=== PATIENT | male | born 1985 | race Caucasian/White ===

== ENCOUNTER 2021-05-18 10:02 | Emergency (ER) | payer OTHER ==
--- NOTE | 2021-05-18 11:27 | ED Physician Documentation ---
PD HPI CHEST PAIN - Stated complaint Stated Complaint: SOA/UPPER LT STOMACH PX - Chief complaint Chief Complaint: Abd Pain - History obtained from History obtained from: Patient - History of Present Illness Timing - onset: How many weeks ago (2) Timing - onset during: Light activity Timing - duration: Weeks (2) Timing - details: Gradual onset, Still present Quality: Pressure, Tightness Location: Substernal, Left chest Radiation: Abdominal Improved by: Rest Worsened by: Movement, Palpation, Position Associated symptoms: Shortness of air, Nausea. No: Diaphoresis, Vomiting Similar symptoms before: Has not had sx before Recently seen: Not recently seen - Additional information Additional information: 36 y/o male with 2 weeks of LUQ pain that is worse when he is working out and sitting in certain positions. He has not had viceral symptoms. Review of Systems Constitutional: denies: Fever Eyes: denies: Decreased vision Ears: denies: Ear pain Nose: denies: Congestion Throat: denies: Sore throat Cardiac: reports: Chest pain / pressure. denies: Palpitations Respiratory: reports: Dyspnea. denies: Cough, Wheezing GI: denies: Nausea, Vomiting : denies: Dysuria, Frequency PD PAST MEDICAL HISTORY - Past Medical History Past Medical History: Yes Cardiovascular: None Respiratory: None Neuro: None Endocrine/Autoimmune: None GI: None : None HEENT: None Psych: None Musculoskeletal: None Derm: None - Past Surgical History Past Surgical History: Yes General: Appendectomy - Allergies Allergies/Adverse Reactions: Allergies Allergy/AdvReac Type Severity Reaction Status Date / Time No Known Drug Allergies Allergy Verified 05/18/21 10:13 - Social History Does the pt smoke?: No Smoking Status: Never smoker Does the pt drink ETOH?: No Does the pt have substance abuse?: No - Immunizations Immunizations are current?: Yes - POLST Patient has POLST: No PD ED PE NORMAL - Vitals Vital signs reviewed: Yes (hypertensive ) - General General: Alert and oriented X 3, No acute distress, Well developed/nourished - HEENT HEENT: Atraumatic, PERRL, EOMI - Neck Neck: Supple, no meningeal sign, No bony TTP - Cardiac Cardiac: RRR, No murmur - Respiratory Respiratory: No respiratory distress, Clear bilaterally - Abdomen Abdomen: Normal bowel sounds, Soft, Non tender, Non distended, No organomegaly - Back Back: No CVA TTP, No spinal TTP - Derm Derm: Normal color, Warm and dry, No rash - Extremities Extremities: No deformity, No edema - Neuro Neuro: Alert and oriented X 3, professional nursing assistant 2-12 intact, No motor deficit, No sensory deficit, Normal speech Eye Opening: Spontaneous Motor: Obeys Commands Verbal: Oriented GCS Score: 15 - Psych Psych: Normal mood, Normal affect Results - Vitals Vitals: Vital Signs - 24 hr 05/18/21 05/18/21 10:08 12:24 Temperature 36.3 C L 37.3 C Heart Rate 60 60 Respiratory 16 16 Rate Blood Pressure 143/53 H 114/56 L O2 Saturation 98 95 Oxygen O2 Source Room air - EKG (time done) 1141 Rate: Rate (enter#) (52) Rhythm: NSR [place]: LAD Compare to prior EKG: Old EKG unavailable Computer interpretation: Agree with computer - Labs Labs: Laboratory Tests 05/18/21 05/18/21 05/18/21 11:33 11:33 11:33 WBC 6.7 RBC 5.24 Hgb 15.9 Hct 44.0 MCV 84.0 MCH 30.3 MCHC 36.1 H RDW 12.2 Plt Count 302 MPV 9.3 Neut # (Auto) 3.8 Lymph # (Auto) 2.2 [place] # (Auto) 0.5 Eos # (Auto) 0.2 Baso # (Auto) 0.0 Absolute Nucleated RBC 0.00 Nucleated RBC % 0.0 D-Dimer < 200.0 L Sodium 139 Potassium 4.1 Chloride 104 Carbon Dioxide 26 Anion Gap 9.0 BUN 26 H Creatinine 1.0 Estimated GFR (MDRD) 84 L Glucose 99 Calcium 9.2 Total Bilirubin 0.8 AST 27 ALT 32 Alkaline Phosphatase 45 Troponin I High Sens Total Protein 7.7 Albumin 5.0 Globulin 2.7 Albumin/Globulin Ratio 1.9 Lipase 27 05/18/21 11:33 WBC RBC Hgb Hct MCV MCH MCHC RDW Plt Count MPV Neut # (Auto) Lymph # (Auto) [place] # (Auto) Eos # (Auto) Baso # (Auto) Absolute Nucleated RBC Nucleated RBC % D-Dimer Sodium Potassium Chloride Carbon Dioxide Anion Gap BUN Creatinine Estimated GFR (MDRD) Glucose Calcium Total Bilirubin AST ALT Alkaline Phosphatase Troponin I High Sens 5.5 Total Protein Albumin Globulin Albumin/Globulin Ratio Lipase - Rads (name of study) chest Radiology: Prelim report reviewed (Impression: Normal for age, source of current symptoms is not seen.), EMP read indepedently, See rad report CT ab/pel with Radiology: Prelim report reviewed (Impression 1. Cholelithiasis without imaging evidence of cholecystitis. Mild scattered stool throughout without obstruction minimal diverticulosis.), EMP read indepedently, See rad report PD MEDICAL DECISION MAKING - ED course Complexity details: reviewed results, re-evaluated patient, considered differential, d/w patient ED course: 36-year-old male with a vague history of left upper quadrant abdominal pain that appears to be positionally related cannot give a firm history of positional movement related pain. He does have some complaints of exertional dyspnea out of proportion to what is expected. We did do a D-dimer troponin electrocardiogram and chest x-ray all without abnormality. Blood work was also without abnormality. I have discussed the findings with the patient and he has had this pain for 2 weeks and we have discussed the utilization of CT scan of the abdomen and pelvis for further evaluation and he would like to proceed.We did find evidence of Cholelithiasis and not cholecystitis. He does not have si gns or symptoms. I have diagnosed the patient with abdominal wall strain and discussed the findings with the patient. Departure - Departure Disposition: 01 Home, Self Care Clinical Impression: Left upper quadrant abdominal pain Condition: Stable Instructions: ED Strain Abdominal Muscle, ED Abdominal Pain Unkn Cause Male Follow-Up: JITENDRA Cohen [Provider Group]
[2021-05-18 11:41] LABS: BASOPHILS % (AUTO) 0.6 %; EOSINOPHILS # (AUTO) 0.2 10^3/uL (0.0-0.7); EOSINOPHILS % (AUTO) 2.2 %; HGB - HEMOGLOBIN 15.9 g/dL (14.0-18.0); LYMPHOCYTES # (AUTO) 2.2 10^3/uL (1.5-3.5); LYMPHOCYTES % (AUTO) 33.3 %; MEAN CORPUSCULAR HEMOGLOBIN 30.3 pg (27.0-31.0); MEAN CORPUSCULAR HGB CONC 36.1 g/dL (32.0-36.0); MEAN PLATELET VOLUME 9.3 fL (7.4-11.4); MONOCYTES # (AUTO) 0.5 10^3/uL (0.0-1.0); NEUTROPHILS # (AUTO) 3.8 10^3/uL (1.5-6.6); NEUTROPHILS % (AUTO) 56.8 %; PLT - PLATELET COUNT 302 10^3/uL (130-450); RED BLOOD COUNT 5.24 10^6/uL (4.70-6.10); RED CELL DISTRIBUTION WIDTH 12.2 % (12.0-15.0); WHITE BLOOD COUNT 6.7 x10^3/uL (4.8-10.8)
[2021-05-18 11:59] LABS: ALBUMIN/GLOBULIN RATIO 1.9 (1.0-2.2); BILIRUBIN,TOTAL 0.8 mg/dL (0.2-1.0); CALCIUM 9.2 mg/dL (8.5-10.3); POTASSIUM 4.1 mmol/L (3.5-5.0); TOTAL PROTEIN 7.7 g/dL (6.7-8.2)
--- NOTE | 2021-05-18 12:04 | XRAY Report ---
PROCEDURE: Chest 2 View X-Ray INDICATIONS: chest pain soa TECHNIQUE: 2 view(s) of the chest. COMPARISON: None. FINDINGS: Surgical changes and devices: None. Lungs and pleura: No pleural effusions or pneumothorax. Lungs are clear. Mediastinum: Mediastinal contours are normal. Heart size is normal. Bones and chest wall: No suspicious bony abnormalities. Soft tissues appear unremarkable. IMPRESSION: Normal for age, source of current symptoms is not seen. Reviewed by: William Orellana MD on 05/18/2021 12:02 PM PDT Approved by: William Orellana MD on 05/18/2021 12:02 PM PDT Station ID: [id number]
[2021-05-18] MEDS ORDERED: IOVERSOL 320 100 ML VIAL IVP ONE ×2 (13:41→14:43)
--- NOTE | 2021-05-18 14:57 | CT Report ---
PROCEDURE: Abdomen/Pelvis W INDICATIONS: LUQ pain CONTRAST: IV CONTRAST: Optiray 320 ml: 100 PO CONTRAST: *NO PO CONTRAST TECHNIQUE: After the administration of IV contrast, 5 mm thick sections acquired from the diaphragms to the symp hysis. 5 mm thick coronal and sagittal reformats were acquired. For radiation dose reduction, the f ollowing was used: automated exposure control, adjustment of mA and/or kV according to patient size. COMPARISON: None. FINDINGS: Image quality: Excellent. ABDOMEN: Lung bases: Lung bases are clear. Heart size is normal. Solid organs: Liver is mildly enlarged with steatosis. The spleen is normal in size and enhancement. Gallbladder multiple luminal stones without wall thickening. Biliary system is non dilated. Pancr eas enhances normally. No adrenal nodules. Kidneys demonstrate normal size and enhancement, without hydronephrosis. Peritoneum and bowel: Bowel loops demonstrate normal wall thickness and caliber. No free fluid or a ir. Minimal scattered diverticula are present without inflammatory change. Scattered stool is noted. Nodes and vessels: No retroperitoneal or mesenteric adenopathy by size criteria. Aorta and inferior vena cava are normal in size. Miscellaneous: No ventral hernias. PELVIS: Genitourinary: Bladder wall thickness is normal. Miscellaneous: No inguinal hernias or adenopathy. Bones: No suspicious bony lesions. No vertebral body compression fractures. IMPRESSION: 1. Cholelithiasis without imaging evidence of cholecystitis. 2. Mild scattered stool without obstruction. 3. Minimal diverticulosis. Reviewed by: Bryanna Ramsay MD on 05/18/2021 2:55 PM PDT Approved by: Bryanna Ramsay MD on 05/18/2021 2:55 PM PDT Station ID: [id number]
[2021-05-18 15:22] VITALS: BP 110/56
== END 2021-05-18 15:24 | disposition home or self-care (01) ==
LOC: ED 10:02
DX: S39.011A Strain of muscle, fascia and tendon of abdomen, initial encounter (principal); X50.9XXA Other and unspecified overexertion or strenuous movements or postures, initial encounter; Y93.A9 Activity, other involving cardiorespiratory exercise; K80.20 Calculus of gallbladder without cholecystitis without obstruction; R07.89 Other chest pain; R06.02 Shortness of breath; R11.0 Nausea
CPT/HCPCS: 36415; 71046; 74177; 80053; 83690; 84484; 85025; 85379; 93005; 99284; Q9967

== ENCOUNTER 2021-07-23 17:04 | Emergency (ER) | payer OTHER ==
[2021-07-23] MEDS ORDERED: LIDOCAINE VISCOUS 2% 15 ML UDC MM STA (18:24)
--- NOTE | 2021-07-23 18:26 | ED Physician Documentation ---
History of Present Illness - Stated complaint Stated Complaint: UPPER ABD/BACK PX - Chief complaint Chief Complaint: Abd Pain - Additonal information Additional information: 36-year-old male presents the emergency department for evaluation of worsening midepigastric and right upper quadrant abdominal pain. This has been an intermittent problem since April but is gotten worse over the last week. The pain is often sharp, constant and sometimes radiates to his back. There is been some nausea but no vomiting. He does endorse some lack of appetite. He is seen by my colleague Dr. Chisholm in May for similar underwent CT imaging which did show gallstones without findings of cholecystitis. Patient is concerned that he may now be developing cholecystitis. There have been no fevers. Review of Systems Constitutional: denies: Fever, Chills Eyes: reports: Reviewed and negative Nose: reports: Reviewed and negative Throat: reports: Reviewed and negative Cardiac: reports: Reviewed and negative Respiratory: reports: Reviewed and negative GI: reports: Abdominal Pain, Nausea. denies: Vomiting, Constipation, Diarrhea, Hematemesis, Bloody / black stool : reports: Reviewed and negative PD PAST MEDICAL HISTORY - Past Medical History Cardiovascular: None Respiratory: None Neuro: None Endocrine/Autoimmune: None GI: None : None HEENT: None Psych: None Musculoskeletal: None Derm: None - Past Surgical History Past Surgical History: Yes General: Appendectomy - Present Medications Home Medications: Ambulatory Orders Medication Instructions Recorded Confirmed Omeprazole 40 mg PO DAILY #30 cap 07/23/21 - Allergies Allergies/Adverse Reactions: Allergies Allergy/AdvReac Type Severity Reaction Status Date / Time No Known Drug Allergies Allergy Verified 05/18/21 10:13 - Social History Does the pt smoke?: No Smoking Status: Never smoker Does the pt drink ETOH?: No Does the pt have substance abuse?: No - Immunizations Immunizations are current?: Yes - POLST Patient has POLST: No PD ED PE NORMAL - General General: Alert and oriented X 3, No acute distress - HEENT HEENT: PERRL - Neck Neck: Supple, no meningeal sign - Cardiac Cardiac: RRR, No murmur - Respiratory Respiratory: Clear bilaterally - Abdomen Abdomen: Normal bowel sounds, Soft. No: Non tender (Epigastric and mild right upper quadrant abdominal pain however negative Dyson's.) - Back Back: No CVA TTP - Derm Derm: Normal color, Warm and dry, No rash - Extremities Extremities: No deformity - Neuro Neuro: Alert and oriented X 3 Results - Vitals Vitals: Vital Signs - 24 hr 07/23/21 07/23/21 17:10 18:19 Temperature 36.6 C Heart Rate 45 L 47 L Respiratory 16 18 Rate Blood Pressure 135/76 H 126/75 O2 Saturation 98 97 Oxygen O2 Source Room air - EKG (time done) 1822 Rate: Rate (enter#) (46) Rhythm: Sinus bradycardia [place]: Normal Intervals: Normal [place]. No: Prolonged QT QRS: Normal Ischemia: Q waves Compare to prior EKG: Old EKG unavailable Computer interpretation: Agree with computer - Labs Labs: Laboratory Tests 07/23/21 07/23/21 07/23/21 18:20 18:20 18:20 WBC 6.4 RBC 5.07 Hgb 15.3 Hct 43.5 MCV 85.8 MCH 30.2 MCHC 35.2 RDW 12.7 Plt Count 278 MPV 9.6 Neut # (Auto) 3.0 Lymph # (Auto) 2.5 [place] # (Auto) 0.6 Eos # (Auto) 0.3 Baso # (Auto) 0.1 Absolute Nucleated RBC 0.00 Nucleated RBC % 0.0 Sodium 140 Potassium 4.0 Chloride 105 Carbon Dioxide 26 Anion Gap 9.0 BUN 18 Creatinine 0.9 Estimated GFR (MDRD) 95 Glucose 98 Calcium 9.2 Total Bilirubin 0.5 AST 19 ALT 29 Alkaline Phosphatase 47 Troponin I High Sens 3.4 Total Protein 7.1 Albumin 4.5 Globulin 2.6 Albumin/Globulin Ratio 1.7 Lipase 26 - Rads (name of study) abd US Radiology: See rad report, Other (Per word processor technician multiple mobile gallstones. No pericholecystic fluid. CBD not dilated. No ductal obstruction. gallbladder wall slightly thickened) Departure - Departure Disposition: 01 Home, Self Care Clinical Impression: Gallstones, Epigastric pain Condition: Stable Record reviewed to determine appropriate education?: Yes Instructions: Gallstones Dc Follow-Up: Ze Arias MD [Provider Admit Priv/Credential] - Prescriptions: Omeprazole 40 mg PO DAILY #30 cap Comments: A beer seen in the emergency department today for upper abdominal pain. The s creening labs completed on you today are essentially unremarkable. Your EKG does not show any worrisome findings. The ultrasound we completed today shows that you do have multiple mobile gallstones. You may need to have your gallbladder removed. Please discuss this with [facility]. You should be referred as soon as possible to a surgeon. I do suspect you also have some mild gastritis or heartburn. I am prescribing omeprazole for you to take every day. If at any point you find that he have suddenly severe abdominal pain, uncontrolled vomiting, develop high fevers, have chest pain or shortness of air then please return immediately to the ER for a second evaluation. [place]
[2021-07-23 18:35] LABS: BASOPHILS # (AUTO) 0.1 10^3/uL (0.0-0.1); BASOPHILS % (AUTO) 1.1 %; EOSINOPHILS # (AUTO) 0.3 10^3/uL (0.0-0.7); EOSINOPHILS % (AUTO) 4.4 %; HCT - HEMATOCRIT 43.5 % (42.0-52.0); HGB - HEMOGLOBIN 15.3 g/dL (14.0-18.0); LYMPHOCYTES # (AUTO) 2.5 10^3/uL (1.5-3.5); LYMPHOCYTES % (AUTO) 38.4 %; MEAN CORPUSCULAR HEMOGLOBIN 30.2 pg (27.0-31.0); MEAN CORPUSCULAR HGB CONC 35.2 g/dL (32.0-36.0); MEAN CORPUSCULAR VOLUME 85.8 fL (80.0-94.0); MEAN PLATELET VOLUME 9.6 fL (7.4-11.4); MONOCYTES # (AUTO) 0.6 10^3/uL (0.0-1.0); MONOCYTES % (AUTO) 9.8 %; NEUTROPHILS % (AUTO) 46.1 %; PLT - PLATELET COUNT 278 10^3/uL (130-450); RED BLOOD COUNT 5.07 10^6/uL (4.70-6.10); RED CELL DISTRIBUTION WIDTH 12.7 % (12.0-15.0); WHITE BLOOD COUNT 6.4 x10^3/uL (4.8-10.8)
[2021-07-23 18:51] LABS: ALBUMIN 4.5 g/dL (3.2-5.5); ALBUMIN/GLOBULIN RATIO 1.7 (1.0-2.2); BILIRUBIN,TOTAL 0.5 mg/dL (0.2-1.0); CALCIUM 9.2 mg/dL (8.5-10.3); CREATININE 0.9 mg/dL (0.6-1.2); TOTAL PROTEIN 7.1 g/dL (6.7-8.2)
--- NOTE | 2021-07-23 19:45 | Ultrasound Report ---
PROCEDURE: Abdomen Limited INDICATIONS: epigastric/RUQ pain; ? aimee TECHNIQUE: Real-time focused scanning was performed of the abdomen, with image documentation. COMPARISON: None. FINDINGS: Suboptimal evaluation as the patient is insufficiently prepped, and ate 2.5 hours prior to the exam. Liver measures 16.5 cm in length and demonstrates mildly coarse increased echotexture. Mul tiple gallstones are present. There is gallbladder wall thickening (although the gallbladder is parti ally decompressed) measuring 5 mm. No pericholecystic fluid. No sonographic Dyson sign. Distal commo n bile duct measures 5 mm, within normal limits. Pancreas is unremarkable. The right kidney measures 11.3 cm. IMPRESSION: Cholelithiasis and gallbladder wall thickening although these findings are technically age indetermin ate. No other sonographic criteria for acute cholecystitis although recommend close clinical correlat ion and with LFTs. Reviewed by: Fermín Asif MD on 07/23/2021 7:44 PM PDT Approved by: Fermín Asif MD on 07/23/2021 7:44 PM PDT Station ID: [id number]
[2021-07-23 20:10] VITALS: BP 117/56
== END 2021-07-23 20:21 | disposition home or self-care (01) ==
LOC: ED 17:04
DX: K80.80 Other cholelithiasis without obstruction (principal)
CPT/HCPCS: 36415; 80053; 83690; 84484; 85025; 93005; 99284

== ENCOUNTER 2022-04-26 15:07 | Outpatient (CLI) | payer OTHER ==
[2022-04-26 15:48] VITALS: BP 113/74
--- NOTE | 2022-04-26 15:48 | SLEEP CARE CONSULTATION ---
Information from patient questionnaire entered by Wendy Perez MA. I have reviewed and concur with the information entered by Wendy Perez MA. This document represents the service I personally performed and the decisions made by me, Diana Emery ARNP. History of Present Illness Service Date and Time: 04/26/2022 1507 Reason for Visit: New patient (ONSET 03/12/2019, ) Chief Complaint: reports: Unrefreshed sleep, Snoring, Excessive daytime sleepiness, Observed pauses in breathing, Fatigue Date of Onset: years Usual bedtime: 10 PM Time it takes to fall asleep: within a few minutes Snores at night: Yes Observed to quit breathing while asleep: Yes Sleeps alone due to snoring: No Number of times waking at night: 1 Reasons for waking at night: reports: Snoring, Gasping for air (felt like he couldn't breathe), Bathroom. denies: Choking Toss, Turn, or Twitch while sleeping: Yes Recalls having dreams: No (not until after taking Melatonin for sleep) Usually gets out of bed at: 0430; weekends varies 0700-830 Feels refreshed in the morning: No Morning headache: Yes (1-2 times a month) Sleepy or fatigued during the day: Yes Ever fallen asleep while driving: No Takes day naps: Yes (Saturdays for about 2-3 hours) Dreams during day naps: No Prior sleep studies: No Additional HPI information: I had the pleasure of seeing MATT BAILEY today regarding the possibility of him having a sleep disorder. His current complaints are excessive daytime sleepiness, fatigue, observed pauses in breathing, snoring and unrefreshed sleep. He was told by a roommate that he stopped breathing and snored loudly. He states he has headaches in the morning but always thought it was caffeine related. He states mostly he does not wake up feeling rested. He twitches in his sleep. He states until he took some melatonin he did not remember having dreams. He does talk in his sleep. He denies any trouble with drowsy driving. He states his father snored loudly when he was a kid but he has never been evaluated for sleep apnea. - Parasomnia Symptoms Ever been unable to move upon waking from sleep: Yes (not often) Walks in sleep: No Talks in sleep: Yes Ever acted out dreams in sleep: No Ever felt weak in the knees when startled or emotional: No Bothered by creepy, crawly, restless sensations in legs: Yes (usually ankles/feet when tired) Problems with memory or concentration: Yes (both) Subjective Initial [place] Sleepiness Scale score: 13 (04/2022) Past Medical History Past Medical History: reports: GERD (gastric reflux), Other (Cholestectomy; tonsillectomy, appendectomy; vascetomy; wrist surgery for torn ligament) Social History The patient's occupation is a [employer]. Patient is and lives in [place]. Have you smoked in the past 12 months: No Cigarettes per day (20/pack): 10 Years of smokin Quit date: 2015 Smoking Pack Years: 10.0 Alcohol use: No Caffeine use: Yes Caffeine amount and frequency: pre-workout/ coffee daily Family History Family history of sleep disordered breathing: No Family Hx Sleep Apnea: Father: Snoring Allergies and Home Medications Drug allergies reviewed: Yes (NKDA) Home medication list reviewed: Yes Allergy and home medication list: Allergies No Known Drug Allergies Allergy (Verified 05/18/21 10:13) Medications: celecoxib 200 mg, anti-inflammatory and pain reliever omeprazole 20 mg Review of Systems Weight gain over past 5 years: 10 lbs Gastrointestinal: reports: heartburn, nausea, abdominal pain Urinary: reports: impotence Neurological: denies: head trauma Ear/Nose/Throat: reports: nasal congestion, tonsillectomy, wisdom teeth removed Endocrine: reports: sluggishness Physical Exam Vital signs obtained and entered by: RICHIE Blood Pressure: 113/74 Cuff size: wrist (right) Heart Rate: 49 O2 Saturation: 97 Height: 5 ft 9 in Weight: 214 lb Body Mass Index: 31.6 BMI Classification: Obese Neck circumference: 15.5 (inches) Mouth and throat: narrow oropharynx Soft palate: long Hard palate: normal Uvula: normal Uvula visualization: 25% Mallampati Class III Tongue: enlarged in size with teeth pearce on lateral edges Tonsils: absent bilaterally Neck: normal w/o lymphadenopathy or thyromegaly Heart: regular rate and rhythm Lungs: clear bilaterally Impression and Plan 1. Suspected Obstructive Sleep Apnea-Hypopnea Syndrome, as suggested by a history of loud and irregular snoring, observed cessation of breath while asleep, gasping or choking in sleep, morning headache, unrefreshed sleep, cognitive impairment, and excessive daytime sleepiness. Narrow oropharynx and obesity are common predisposing factors for obstructive sleep apnea-hypopnea s yndrome. I recommend proceeding to polysomnography to confirm the diagnosis and to assess severity. If the patient has significant sleep disordered breathing, a manual CPAP titration study will also be performed to find the optimal treatment pressure. I informed the patient of what the sleep studies involve and after some discussion, obtained agreement to proceed. The pathophysiology of obstructive sleep apnea-hypopnea syndrome was discussed with the patient and health risks of cardiovascular and cerebrovascular disease if not treated. 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 Patient agreed to plan. * Schedule polysomnography * Avoid long distance driving or driving when feeling sleepy. * Avoid alcohol, sedative and muscle relaxant around bedtime. * Attempt to lose weight. * Review instructions provided by trained office staff on how to prepare for the sleep study. * Return for follow-up after sleep study completed. Counseling Topics: Weight loss health impact Visit Type: In Office Time Spent with Patient (minutes): 30 Provider Statement: I spent 100% of the Face to Face Visit with the patient with greater than 50% spent counseling the patient and coordination of care.
== END 2022-04-26 15:08 | disposition home or self-care (01) ==
LOC: SC 15:07
PROVIDERS: ATTEND Nurse Practitioner Family
DX: R06.83 Snoring (principal); G47.8 Other sleep disorders; R06.81 Apnea, not elsewhere classified; G47.10 Hypersomnia, unspecified; R53.83 Other fatigue; E66.9 Obesity, unspecified; Z68.31 Body mass index [BMI] 31.0-31.9, adult; Z87.891 Personal history of nicotine dependence
CPT/HCPCS: 99203; 99212

== ENCOUNTER 2022-04-28 20:42 | Outpatient (CLI) | payer OTHER | END 2022-04-28 20:43 | disposition home or self-care (01) | LOC: SC 20:42 | PROVIDERS: ATTEND Nurse Practitioner Family | DX: R06.83 Snoring (principal); G47.10 Hypersomnia, unspecified; R53.83 Other fatigue; R06.81 Apnea, not elsewhere classified | CPT/HCPCS: 95810 ==

== ENCOUNTER 2022-05-17 16:00 | Outpatient (CLI) | payer OTHER ==
[2022-05-17 16:24] VITALS: BP 116/73
--- NOTE | 2022-05-17 16:24 | SLEEP CARE CONSULTATION ---
Information from patient questionnaire entered by Wendy Perez MA. I have reviewed and concur with the information entered by Wendy Perez MA. This document represents the service I personally performed and the decisions made by Yuly johnson Caren J, ARNP. History of Present Illness Service Date and Time: 05/17/2022 1600 Initial [place] Sleepiness Scale score: 13 (04/2022) Current [place] Sleepiness Scale score: 17 (05/17/22) Additional HPI information: MATT BAILEY returns for follow up and results of the recently performed polysomnography. The patient was informed of the following findings: No significant sleep disordered breathing with an average AHI of 0.5 and germain oxygen saturation of 89%. I explained the pathophysiology behind obstructive sleep apnea. Patient does not have sleep apnea and was advised how weight gain could increase the risk of developing sleep apnea in the future. Patient has light to moderate snoring. Snoring can be reduced by weight loss. Weight loss is best achieved with diet consult. Patient instructed to contact PCP for referral. Snoring can also be treated with an oral appliance from a dentist. Advised to check insurance coverage. In addition, an ENT evaluation can be do to see if other treatment is indicated. Patient was cautioned about risks of drowsy driving until sleepiness symptoms resolve. Sleep Study - Results Type of Sleep Study: Polysomnography (F/U POLY, 04/28/2022 [facility], [place]) Prior sleep studies: No Polysomnography/Home Sleep Study results: IMPRESSION: The quality of the study is good. The patient had normal sleep efficiency. The sleep architecture was normal as well. Respiratory monitoring showed no significant sleep disorde red breathing (AHI = 0.5) or hypoxia (germain oxygen saturation of 89%). The patient slept adequately in supine position (supine AHI = 0.9; nonsupine = 0.24). Snore was light to moderate in intensity. There was no significant periodic leg movement of sleep. Cardiac rhythm was normal sinus rhythm without significant arrhythmia. No abnormal behavior (parasomnia) observed during the night. Allergies and Home Medications Known drug allergies: No Home medication list reviewed: Yes (no changes) Allergy and home medication list: Allergies No Known Drug Allergies Allergy (Verified 05/18/21 10:13) Review of Systems Review of systems same as previous: Yes (no changes) Physical Exam Vital signs obtained and entered by: SIVA SILVA Blood Pressure: 116/73 (RESP 16, PULSE 52, RIGHT) Cuff size: wrist Heart Rate: 57 O2 Saturation: 97 (PAPER MASK) Height: 5 ft 9 in Weight: 210 lb (UNIFORM BOOTS) Body Mass Index: 31.0 BMI Classification: Obese Impression and Plan Snoring but no significant sleep disordered breathing. Patient advised that often weight loss will reduce snoring as well as apnea risk. An oral appliance can also be used for snoring. This would require a dental consultation. Patient cautioned not to use other online appliances as can cause bite issues. A list of accredited dentists in [facility] and one local dentist who makes oral appliances is available in the office. Patient is advised to check if insurance will cover. An ENT consult can also be helpful to determine if any other treatment is an optio n. * Attempt to lose weight * Avoid alcohol consumption near bedtime * The patient is cautioned about driving until sleepiness is completely resolved. * Return as needed for follow up. Counseling Topics: Weight loss health impact Visit Type: In Office Time Spent with Patient (minutes): 20 Provider Statement: I spent 100% of the Face to Face Visit with the patient with greater than 50% spent counseling the patient and coordination of care.
== END 2022-05-17 16:01 | disposition home or self-care (01) ==
LOC: SC 16:00
PROVIDERS: ATTEND Nurse Practitioner Family
DX: R06.83 Snoring (principal); E66.9 Obesity, unspecified; Z68.31 Body mass index [BMI] 31.0-31.9, adult
CPT/HCPCS: 99212; 99213

== ENCOUNTER 2022-07-14 19:20 | Emergency (ER) | payer OTHER ==
--- NOTE | 2022-07-14 20:15 | ED Physician Documentation ---
History of Present Illness - Stated complaint Stated Complaint: MIGRAINE/BACK PX - Chief complaint Chief Complaint: General PD PAST MEDICAL HISTORY - Past Medical History Cardiovascular: None Respiratory: None Neuro: None Endocrine/Autoimmune: None GI: None : None HEENT: None Psych: None Musculoskeletal: None Derm: None - Past Surgical History Past Surgical History: Yes General: Appendectomy - Present Medications Home Medications: Ambulatory Orders Medication Instructions Recorded Confirmed Omeprazole 40 mg PO DAILY #30 cap 07/23/21 - Allergies Allergies/Adverse Reactions: Allergies Allergy/AdvReac Type Severity Reaction Status Date / Time No Known Drug Allergies Allergy Verified 07/14/22 19:39 - Social History Does the pt smoke?: No Smoking Status: Never smoker Does the pt drink ETOH?: No Does the pt have substance abuse?: No - Immunizations Immunizations are current?: Yes - POLST Patient has POLST: No Results - Vitals Vitals: Vital Signs - 24 hr 07/14/22 19:34 Temperature 37 C Heart Rate 73 Respiratory 18 Rate Blood Pressure 126/61 O2 Saturation 98 Oxygen O2 Source Room air
[2022-07-14] MEDS ORDERED: PROCHLORPERAZINE 10 MG/2 ML VIAL IVP STA (20:27)
[2022-07-14] MEDS ORDERED: diphenhydrAMINE INJ 50 MG/ML VIAL IVP STA (20:27)
[2022-07-14] MEDS ORDERED: SODIUM CHLORIDE 0.9% 1,000 ML IV STA (20:27)
--- NOTE | 2022-07-14 20:30 | ED Physician Documentation ---
History of Present Illness - Stated complaint Stated Complaint: MIGRAINE/BACK PX - Chief complaint Chief Complaint: General - Additonal information Additional information: 37-year-old male presents emergency department for evaluation of a headache that radiates from his posterior occiput to his eyes. Had a dull headache for about 2 days but acutely worse this morning. He is taken Motrin, Tylenol and Excedrin without relief. No fevers. No falls or trauma. States he thinks he has a migraine though he has never been diagnosed with that disorder. Headache started slowly a few days ago. Was not thunderclap. Patient does not have much of a migraine history and is unable to determine if this is worst of life Review of Systems Constitutional: denies: Fever, Chills Eyes: denies: Loss of vision, Photophobia Ears: reports: Reviewed and negative Cardiac: reports: Reviewed and negative Respiratory: reports: Reviewed and negative GI: reports: Reviewed and negative : reports: Reviewed and negative Skin: reports: Reviewed and negative Neurologic: reports: Headache. denies: Focal weakness, Numbness, Difficulty speaking, Syncope, Seizure, Confused, LOC Psychiatric: reports: Reviewed and negative Endocrine: reports: Reviewed and negative PD PAST MEDICAL HISTORY - Past Medical History Cardiovascular: None Respiratory: None Neuro: None Endocrine/Autoimmune: None GI: None : None HEENT: None Psych: None Musculoskeletal: None Derm: None - Past Surgical History Past Surgical History: Yes General: Appendectomy - Present Medications Home Medications: Ambulatory Orders Medication Instructions Recorded Confirmed Omeprazole 40 mg PO DAILY #30 cap 07/23/21 - Allergies Allergies/Adverse Reactions: Allergies Allergy/AdvReac Type Severity Reaction Status Date / Time No Known Drug Allergies Allergy Verified 07/14/22 19:39 - Social History Does the pt smoke?: No Smoking Status: Never smoker Does the pt drink ETOH?: No Does the pt have substance abuse?: No - Immunizations Immunizations are current?: Yes - POLST Patient has POLST: No PD ED PE NORMAL - General General: Alert and oriented X 3, No acute distress, Well developed/nourished - HEENT HEENT: Atraumatic, Moist mucous membranes - Neck Neck: Supple, no meningeal sign, No adenopathy - Cardiac Cardiac: RRR, No murmur - Respiratory Respiratory: No respiratory distress, Clear bilaterally - Abdomen Abdomen: Normal bowel sounds, Soft - Back Back: No CVA TTP - Derm Derm: Warm and dry, No rash - Extremities Extremities: No deformity, No tenderness to palpate, Normal ROM s pain - Neuro Neuro: Alert and oriented X 3, 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 He believes he has a migraine though no formal history of such. No fevers neck pain. No falls or trauma. No double vision. Unremarkable neurological exam. Patient was administered a liter of fluid Compazine and Benadryl here in the emergency department and was having improved headache symptoms. This was not a thunder clap headache nor sudden onset low suspicion for subarachnoid hemorrhage. No fevers or nuchal rigidity low suspicion for infectious process. But given a history that does not suggest migraine etiology as CT scan was completed without acute focal findings. Patient is feeling improved and is stable for discharge home. Advise close follow-up with [facility]. Emergent return precautions were discussed for worsening symptoms Departure - Departure Disposition: 01 Home, Self Care Clinical Impression: Headache Qualifiers: Headache type: unspecified Headache chronicity pattern: acute headache Intractability: not intractable Qualified Code(s): R51.9 - Headache, unspecified Condition: Stable Record reviewed to determine appropriate education?: Yes Instructions: ED Cephalgia Unspecified Comments: Zaki you are seen today in the emergency department for headache. Your neurological and cerebellar exam was normal. I would like you to get plenty of rest at home and drink lots of fluids. You can continue to take 600 mg of ibuprofen with food 2-3 times a day or alternate with Tylenol 500 mg 2-[address] of your head was unremarkable. If you find that your headaches are not improving I would like you to follow-up with [facility]. Further evaluation with an MRI could be indicated or referral to neurology. Return to the emergency department for uncontrolled vomiting, fevers or double vision, slurred speech or facial droop
--- NOTE | 2022-07-14 21:36 | CT Report ---
PROCEDURE: HEAD WO INDICATIONS: headache TECHNIQUE: Noncontrast 4.5 mm thick angled axial sections acquired from the foramen magnum to the vertex. For r adiation dose reduction, the following was used: automated exposure control, adjustment of mA and/or kV according to patient size. COMPARISON: None. FINDINGS: Image quality: Excellent. CSF spaces: Basal cisterns are patent. No extra-axial fluid collections. Ventricles are normal in size and shape. Brain: No midline shift. No intracranial masses or hemorrhage. Puente-white matter interface is norm al. Skull and face: Calvarium and visualized facial bones are intact, without suspicious lesions. Sinuses: Visualized sinuses and mastoids are clear. IMPRESSION: No acute intracranial abnormality. Reviewed by: Suman Kulkarni on 07/14/2022 9:35 PM PDT Approved by: Suman Kulkarni on 07/14/2022 9:35 PM PDT Station ID: [id number]
[2022-07-14 21:57] VITALS: BP 122/63
== END 2022-07-14 21:56 | disposition home or self-care (01) ==
LOC: ED 19:20
DX: R51.9 Headache, unspecified (principal)
CPT/HCPCS: 70450; 96374; 96375; 99284; J1200